=== PATIENT | male | born 1990 | race Hispanic/Latino ===

== ENCOUNTER → 2024-06-15 | Outpatient (CLI) | payer OTHER ==
--- NOTE | 2024-06-18 13:25 | HMCSR ---
APPROVED REPORT EXAM: Two-dimensional and M-mode echocardiogram with Doppler and color Doppler. INDICATION ICD: Atherosclerotic heart disease of [place] coronary artery without angina pectoris I25.10 2D Dimensions RVDd4.6 cmLVEF(%)41.8 (>50%)LVED Vol(simp.)187.0 mL IVSd1.0 (0.7-1.1cm)FS(%)21 %LVES Vol(simp.)106.0 mL LVDd5.3 (3.8-5.6cm)LA (2D)4.6 (1.6-4.0cm)LVEF(%, simp.)43 % PWd1.2 (0.7-1.1cm)Ao Root(2D)3.2 (2.0-3.7cm)LA ESV INDEX (4CH)22.20 mL/m2 IVSs1.3 cmLA ESV INDEX (2CH)25.10 mL/m2 LVDs4.2 (2.5-4.0cm)LA ESV INDEX (BP)24.10 mL/m2 PWs1.3 cm M-Mode Dimensions EPSS1.5 cm LA (MM)3.7 (1.6-4.0cm) Ao Root(MM)2.6 (2.0-3.7cm) Aortic Valve AoV VTI0.2 mAo Mean GR3.0 mmHgLVOT VTI0.21 m Mitral Valve MV E Vmax92.6 cm/sDECEL Take309 ms MV A Vmax59.2 cm/sP 1/2 T66 ms E/A ratio1.6MVA (PHT)3.3 cm2 MR Max PG60 mmHg TDI E/E' Ldephe99.0E/E' Eymsobu38.0 Medial E' Peak V6.60 cm/sLateral E' Peak V7.10 cm/s Left Ventricle Left ventricular cavity size is normal. Severe distal Otis-septal and apical hypokinesis There is normal left ventricular wall thickness. LVEF is 40%. The left ventricular diastolic function is teresa l. Right Ventricle The right ventricle is mildly dilated. The right ventricular systolic function is normal. Atria The left atrium is mildly dilated. The right atrium is mildly dilated. Aortic Valve The aortic valve is normal in structure No aortic regurgitation is present. There is no aortic valvul ar stenosis. Mitral Valve The mitral valve is normal in structure and function. Mitral regurgitation is mild. There is no mili l valve stenosis. Tricuspid Valve The tricuspid valve is normal in structure and function. There is no tricuspid valve regurgitation no nelly. Pulmonic Valve The pulmonary valve is normal in structure and function. There is no pulmonic valvular regurgitation. Great Vessels The aortic root is normal in size. The IVC is normal in size and collapses >50% with inspiration. Pericardium No pericardial effusion. Conclusion Left ventricular cavity size is normal. Severe distal Otis-septal and apical hypokinesis LVEF is 40%. Mitral regurgitation is mild.
== END | disposition home or self-care (01) ==
LOC: RAH 10:32
PROVIDERS: ATTEND Internal Medicine Cardiovascular Disease
DX: I34.0 Nonrheumatic mitral (valve) insufficiency (principal); I25.10 Atherosclerotic heart disease of native coronary artery without angina pectoris
CPT/HCPCS: 93306